=== PATIENT | female | born 1980 | race Caucasian/White ===

== ENCOUNTER 2020-08-28 08:11 | Emergency (ER) | payer MEDICAID ==
[~2020-08-28] VITALS: Ht 157.5 cm; Wt 100.0 kg
[2020-08-28 08:12] VITALS: BP 125/57
[2020-08-28] MEDS ORDERED: OXYC-302 PO (08:28)
[2020-08-28] MEDS ORDERED: HYDROcodone/APAP 5/325 TABLET ONE (08:46)
[2020-08-28] MEDS ORDERED: L.E.T SOLUTION TP ONE ×2 (08:46→09:00)
[2020-08-28] MEDS ORDERED: HYDROcodone/APAP 5/325 TABLET PO ONE (09:00)
--- NOTE | 2020-08-28 09:54 | NUR ---
PT REPORTS PAIN IS BETTER AFTER NORCO.
== END 2020-08-28 09:56 | disposition home or self-care (01) ==
LOC: ED 09:02
DX: S06.0X0A Concussion without loss of consciousness, initial encounter (principal); S01.81XA Laceration without foreign body of other part of head, initial encounter; X58.XXXA Exposure to other specified factors, initial encounter; Y93.89 Activity, other specified; Y92.098 Other place in other non-institutional residence as the place of occurrence of the external cause; Y99.8 Other external cause status
CPT/HCPCS: 12011; 99282